=== PATIENT | male | born 1995 | race Caucasian/White ===

== ENCOUNTER 2018-06-21 15:20 | Emergency (ER) | payer MEDICAID, OTHER ==
[~2018-06-21] VITALS: Ht 180.3 cm; Wt 61.2 kg
[2018-06-21 15:33] VITALS: BP 119/81
== END 2018-06-21 22:56 | disposition left against medical advice (07) ==
LOC: ER 15:27
DX: R11.2 Nausea with vomiting, unspecified (principal); Z53.21 Procedure and treatment not carried out due to patient leaving prior to being seen by health care provider